=== PATIENT | female | born 1990 | race Caucasian/White ===

== ENCOUNTER 2016-11-15 17:32 | Emergency (ER) | payer OTHER ==
[~2016-11-15] VITALS: Ht 170.2 cm; Wt 95.3 kg
--- NOTE | 2016-11-15 19:46 | ED GENERAL ADULT ---
History of Present Illness General Chief Complaint: General Adult Stated Complaint: 12 WKS PREG, SYNCOPAL EPISODE, VOMITED BLOOD X1 Source: patient Exam Limitations: no limitations Vital Signs & Intake/Output Vital Signs & Intake/Output Vital Signs Date Time Temp Pulse Resp B/P B/P Pulse O2 O2 Flow FiO2 Mean Ox Delivery Rate 11/15 2241 98.7 74 18 105/56 99 Room Air 11/151 99 Room Air 11/15 1744 97.8 72 18 129/78 97 Room Air ED Intake and Output 11/16 0000 11/15 1200 Intake Total Output Total Balance Patient 210 lb Weight Weight Reported by Patient Measurement Method Allergies Coded Allergies: prazosin (From MINIPRESS) (PALPITATIONS 09/26/15) Reconcile Medications Doxylamine/Pyridoxine HCl (Diclegis Dr 10-10 MG Tablet) 10 MG-10 MG TABLET.DR 2 TAB PO QPM N/V (Reported) Doxylamine/Pyridoxine HCl (Diclegis Dr 10-10 MG Tablet) 10 MG-10 MG TABLET.DR 1 TAB PO BID N/V (Reported) Vit No.130/Iron/FA ( Tablet) 27 MG IRON-800 MCG TABLET 1 TAB PO DAILY (Reported) Triage Note: PRESENTS TO ED FOR EVALUATION S/P SYNCOPAL EPISODE THIS AM. SHE ALSO REPORTS TO HAVE VOMITED X 1 WITH MINIMAL BLOOD. SHE IS CURRENTLY 12 WEEKS . Triage Nurses Notes Reviewed? yes : Yes Patient currently breastfeeds: Yes HPI: 26-year-old at 12 weeks gestation otherwise healthy female presenting with syncope around 7 AM this morning. Reports getting out of a very hot shower, became lightheaded and felt she was going to pass out, woke up on the floor. Denies JOHNSON, blurry vision, confusion since syncopal episodes, at bedside and denies any AMS, at her baseline behavior. Has been nauseous all day with one episode of emesis early this afternoon. Reports 2-3 small specks of blood in the emesis. Has had nausea and vomiting throughout her , currently managed on diclegis. Denies diaphoresis, chest pain, shortness of breath, dizziness, pain into the arm jaw or back. Denies leg swelling, recent travel, history of blood clots, family history of blood clots, cigarette smoking, hemoptysis. Denies any abdominal pain/cramping or vaginal bleeding/fluid leakage. Seen and evaluated by OB this afternoon, cleared obstetrically and sent in for medical evaluation. (SPIKE GAINES,EVA) Past History Travel History Traveled to [place] past 21 day No Medical History Any Pertinent Medical History? see below for history Neurological: NONE EENT: NONE Cardiovascular: NONE Respiratory: NONE Gastrointestinal: NONE Hepatic: NONE Renal: NONE Musculoskeletal: NONE Psychiatric: anxiety, depression, PTSD Endocrine: NONE Blood Disorders: NONE Cancer(s): NONE ROUGE PRESSER/Reproductive: NONE History of MRSA: No History of VRE: No History of CDIFF: No Surgical History Surgical History: non-contributory Psychosocial History Who do you live with Significant Other What is your primary language Kittitian Tobacco Use: Quit >30 days ago Family History Hx Contributory? No (SPIKE GAINES,EVA) Review of Systems Review of Systems Constitutional: Denies: chills, diaphoresis, fever, malaise, weakness. EENTM: Reports: no symptoms. Respiratory: Denies: cough, hemoptysis, short of breath, sputum production, wheezing. Cardiovascular: Reports: syncope. Denies: chest pain, palpitations. GI: Denies: abdominal pain. Genitourinary: Denies: discharge, dysuria, frequency, urgency. Neurological/Psychological: Reports: other (light headedness). Denies: headache, numbness, paresthesia, tingling, tremors, weakness. (EVA LALA PA-C) Physical Exam Physical Exam General Appearance: well developed/nourished, no apparent distress, comfortable Head: atraumatic Ears, Nose, Throat: normal ENT inspection Neck: normal inspection, full range of motion, no midline tenderness Respiratory: normal breath sounds, chest non-tender, lungs clear Cardiovascular: regular rate/rhythm Gastrointestinal: normal bowel sounds, soft, non-tender Back: normal inspection, no vertebral tenderness Extremities: no edema, no erythema or increased warmth Neurologic/Psych: no motor/sensory deficits, awake, alert, oriented x 3, normal gait, access 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 Skin: intact Core Measures ACS in differential dx? No CVA/TIA Diagnosis: No Severe Sepsis Present: No Septic Shock Present: No (SPIKE GAINES,EVA) Progress Differential Diagnoses I considered the following diagnoses in my evaluation of the patient: [Vasovagal versus cardiac arrhythmia versus valvular disease versus PE versus anemia versus cranial hemorrhage versus skull fracture.] Plan of Care: Orders Procedure Date/time Status HUMAN BETA HCG TITRE 11/16 1999 Complete CBC WITHOUT DIFFERENTIAL 11/16 1999 Complete BASIC METABOLIC PANEL 11/16 1999 Complete EKG 11/16 1999 Active URINALYSIS 11/15 185 Complete Laboratory Tests 11/15/162049: Urine Color YEL, Urine Clarity CLEAR, Urine pH 6.0, Ur Specific [place] >= 1.030 , Urine Protein NEG, Urine Ketones NEG, Urine Nitrite NEG, Urine Bilirubin NEG, Urine Urobilinogen 0.2, Ur Leukocyte Esterase NEG, Ur Microscopic EXAM NOT REQUIRED, Urine Hemoglobin NEG, Urine Glucose NEG 11/15/162029: Anion Gap 9, Estimated GFR > 60, BUN/Creatinine Ratio 15.0, Glucose 87, Calcium 8.7, Beta HCG, Quant 273694.0, CBC w Diff NO MAN DIFF REQ, RBC 4.14 L, MCV 82.8 , MCH 27.5, RDW 15.3 H, MPV 8.1, Gran % 66.0, Lymphocytes % 25.9, Monocytes % 6.4, Eosinophils % 1.4, Basophils % 0.3, Absolute Granulocytes 6.5, Absolute Lymphocytes 2.5, Absolute Monocytes 0.6, Absolute Eosinophils 0.1, Absolute Basophils 0, PUBS MCHC 33.2 EKG showed normal sinus rhythm with a rate of 68. All labs within normal limits. Given the context of syncopal episode while exiting hot shower suspect vasovagal episode. PE considered given syncope in but ruled out on clinical grounds as the patient has had no chest pain, no shortness of breath, no tachypnea, no hypoxia, no leg swelling, no hemoptysis. Spoke with Dr. Coronado covering for Dr. Davalos and informed of workup. Planned for patient to follow-up in the office within 24-48 hours for reevaluation. (SPIKE GAINES,EVA) Initial ED EKG: NSR (rate 68) (SPIKE PA-C,EVA) Departure Departure Disposition: HOME OR SELF CARE Condition: Stable Clinical Impression Primary Impression: Syncope Referrals: LOIS ENG,ZENON Stallworth (PCP/Family) Additional Instructions: Follow-up with Dr. Davalos's office in the next 24-48 hours for reevaluation. Return to the ED for any new or worsening symptoms. Departure Forms: Customer Survey General Discharge Information (EVA LALA PA-C) PA/ACCOUNT INFORMATION CLERK Co-Sign Statement Statement: ED Attending supervision documentation- [] I saw and evaluated the patient. I have also reviewed all the pertinent lab results and diagnostic results. I agree with the findings and the plan of care as documented in the PA's/ACCOUNT INFORMATION CLERK's documentation. [X] I have reviewed the ED Record and agree with the PA's/ACCOUNT INFORMATION CLERK's documentation. [] Additions or exceptions (if any) to the PAs/ACCOUNT INFORMATION CLERK's note and plan are summarized below: [] (SAKINA ENG,CRYSTAL Zeng) Critical Care Note Critical Care Note Critical Care Time: non-applicable (EVA LALA PA-C)
[2016-11-15] MEDS ORDERED: PRENATAL TABLE1 EAC2 PO (20:59)
[2016-11-15] MEDS ORDERED: DICLEGIS DR 101 EACH PO ×2 (20:59)
[2016-11-15 21:34] LABS: ABSOLUTE BASOPHIL COUNT 0 /CUMM (0.0-0.2); ABSOLUTE EOSINOPHIL COUNT 0.1 /CUMM (0.0-0.7); ABSOLUTE GRANULOCYTE CT 6.5 /CUMM (1.4-6.5); ABSOLUTE LYMPH COUNT 2.5 /CUMM (1.2-3.4); ABSOLUTE MONOCYTE COUNT 0.6 /CUMM (0.10-0.60); BASOPHIL % 0.3 % (0.0-2.0); EOSINOPHIL % 1.4 % (0-5); HEMATOCRIT 34.3 % (37-47); MEAN CORPUSCULAR HGB 27.5 PG (27.0-31.0); MEAN CORPUSCULAR HGB CONC 33.2 G/DL (33.0-37.0); MEAN CORPUSCULAR VOLUME 82.8 FL (81.0-99.0); MEAN PLATELET VOLUME 8.1 FL (7.4-10.4); PLATELET COUNT 222 /CUMM (130-400); RBC DISTRIBUTION WIDTH 15.3 % (11.5-14.5); RED BLOOD CELL CT 4.14 /CUMM (4.20-5.40); WHITE BLOOD CELL COUNT 9.8 /CUMM (4.8-10.8)
[2016-11-15 22:41] VITALS: BP 105/56
== END 2016-11-15 22:42 ==
LOC: ERH 17:32
PROVIDERS: Physician Assistant
DX: O26.91 Pregnancy related conditions, unspecified, first trimester (principal); R55 Syncope and collapse
CPT/HCPCS: 81003; 93005; 93010

== ENCOUNTER 2017-07-07 21:23 | Emergency (ER) | payer OTHER ==
[~2017-07-07] VITALS: Ht 170.2 cm; Wt 94.8 kg
[~2017-07-07 21:23] MED LIST: DICLEGIS DR 101 EACH PO; DOCUSATE SODIU100 M3 PO; IBUPROFEN800 M1 PO; PERCOCET 5-3251 EACH PO; PRENATAL TABLE1 EAC2 PO; WELLBUTRIN XL300 M2
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
[2017-07-07] MEDS ORDERED: NORCO 5-325 TA1 EACH PO ×2 (23:00→23:34)
[2017-07-07] MEDS ORDERED: IBUPROFEN600 M1 PO ×2 (23:00→23:34)
[2017-07-07 23:25] VITALS: BP 136/78
== END 2017-07-07 23:38 ==
LOC: ERH 21:23
DX: S62.398A Other fracture of other metacarpal bone, initial encounter for closed fracture (principal); Y04.8XXA Assault by other bodily force, initial encounter; Y92.9 Unspecified place or not applicable; Y93.9 Activity, unspecified
CPT/HCPCS: 73130-RT